=== PATIENT | female | born 1980 | race Caucasian/White ===

== ENCOUNTER 2025-03-18 11:42 | Emergency (ER) | payer SELFPAY ==
[2025-03-18] MEDS ORDERED: Dexamethasone 10 MG/ML VIAL ONE (13:02)
== END 2025-03-18 13:06 | disposition home or self-care (01) ==
LOC: ERS 11:42
DX: L25.5 Unspecified contact dermatitis due to plants, except food (principal); F17.290 Nicotine dependence, other tobacco product, uncomplicated
CPT/HCPCS: 99282; J1100